=== PATIENT | male | born 1955 | race Caucasian/White ===

== ENCOUNTER → 2024-02-19 14:46 | Outpatient (REF) | payer MEDICARE, BC, SELFPAY | LOC: HWRAD 14:46 | PROVIDERS: ATTENDING PHYSICIAN Internal Medicine Rheumatology; FAMILY PHYSICIAN Family Medicine | DX: M77.9 Enthesopathy, unspecified (principal) | CPT/HCPCS: 73130 ==

== ENCOUNTER → 2024-03-04 07:36 | Outpatient (REF) | payer MEDICARE, BC, SELFPAY | LOC: RAD 07:36 | PROVIDERS: ATTENDING PHYSICIAN Family Medicine | DX: K11.1 Hypertrophy of salivary gland (principal) | CPT/HCPCS: 76536 ==

== ENCOUNTER → 2024-06-30 06:21 | Day surgery (SDC) | payer MEDICARE, BC, SELFPAY | LOC: GI 06:21 | PROVIDERS: ATTENDING PHYSICIAN Internal Medicine Gastroenterology; FAMILY PHYSICIAN Family Medicine | DX: K20.0 Eosinophilic esophagitis (principal); K22.89 Other specified disease of esophagus; K31.7 Polyp of stomach and duodenum; D18.1 Lymphangioma, any site; R13.10 Dysphagia, unspecified | CPT/HCPCS: 43239; 88305 ==